=== PATIENT | male | born 1990 ===

== ENCOUNTER 2017-10-20 18:36 | Emergency (ER) | payer OTHER ==
--- NOTE | 2017-10-20 21:26 | Cat Scan Report ---
FINAL REPORT PROCEDURE: CT HEAD/BRAIN WO CON TECHNIQUE: Computerized tomography of the head was performed without contrast material. HISTORY: head injury COMPARISON: No prior studies are available for comparison. FINDINGS: There is encephalomalacia in the right frontal lobe and to lesser degree the left frontal lobe. 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 There is no CT evidence of intracranial mass, hemorrhage, acute territorial infarction, or hydrocephalus. The intracranial arteries are symmetric in density. Calvarium is intact. Visualized paranasal sinuses and mastoids are aerated. IMPRESSION: Chronic ischemic changes. No CT evidence of acute intracranial abnormality
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
[2017-10-20 22:03] LABS: Hematocrit 39.3 % (35.5-45.6); Hemoglobin 13.2 gm/dl (11.8-15.2); Mean Corpuscular HGB Conc 34 % (32-34); Mean Corpuscular Hemoglobin 31 pg (28-32); Mean Corpuscular Volume 93 fl (84-94); Platelet Count 404 K/mm3 (140-440); Red Blood Count 4.24 M/mm3 (3.65-5.03); Red Cell Distribution Width 12.8 % (13.2-15.2)
[2017-10-20 22:20] LABS: Alanine Aminotransferase 67 units/L (7-56); Albumin 4.3 g/dL (3.9-5); BUN/Creatinine Ratio 28; Blood Urea Nitrogen 14 mg/dL (9-20); Hemolysis Index 3
--- NOTE | 2017-10-20 23:18 | Cat Scan Report ---
FINAL REPORT PROCEDURE: CT cervical spine without contrast. TECHNIQUE: Computerized tomography of the cervical spine was performed from the skull base to T1 without contrast material. HISTORY: Neck injury. COMPARISON: No prior studies are available for comparison. FINDINGS: The cervical vertebrae have normal height and satisfactory alignment. There are no fractures. There is no subluxation. The disc spaces appear adequate. The spinal canal is widely patent. The facet joints appear satisfactory. The neural foramina are widely patent. The prevertebral soft tissues have normal thickness. IMPRESSION: No evidence of acute cervical spine injury.
--- NOTE | 2017-10-20 23:20 | XRay Report ---
FINAL REPORT PROCEDURE: Chest. TECHNIQUE: Portable AP view. HISTORY: Cough. COMPARISON: No prior studies are available for comparison. FINDINGS: The heart and mediastinum appear normal. There is an aortic stent graft in the descending thoracic aorta. The lungs are clear and well expanded. There are no pleural effusions. The soft tissues and regional skeleton are unremarkable. IMPRESSION: Previous aortic stent graft placement. No evidence of acute disease.
[2017-10-21 00:05] LABS: Band Neutrophils # (Manual) 0.1 K/mm3; Basophils % (Manual) 0 % (0.0-1.8); Large Platelets Rare; RBC Morphology Normal; Total Cells Counted 100
[2017-10-21 00:47] LABS: Bilirubin,Urine NEG (Negative); Blood,Urine NEG (Negative); Color,Urine Yellow (Yellow); Mucus,Urine FEW /HPF; Protein,Urine <15 mg/dL mg/dL (Negative); Urobilinogen,Urine < 2.0 mg/dL (<2.0)
[2017-10-21 03:04] VITALS: BP 110/71
== END 2017-10-21 03:03 | disposition home or self-care (01) ==
LOC: ED 18:36
DX: S09.90XA Unspecified injury of head, initial encounter (principal); W05.0XXA Fall from non-moving wheelchair, initial encounter; Y93.89 Activity, other specified; Y92.89 Other specified places as the place of occurrence of the external cause; Y99.8 Other external cause status
CPT/HCPCS: 36415; 70450; 71045; 72125; 80053; 81001; 85007; 85025; 99284